=== PATIENT | female | born 1985 | race Caucasian/White ===

== ENCOUNTER 2017-11-06 07:22 | Day surgery (SDC) | payer BC, SELFPAY ==
[2017-11-05 07:33] LABS: Hematocrit 42.8 % (37-47); Hemoglobin 14.2 g/dl (12.0-15.0); Mean Corp Hgb Conc 33.2 g/gl (32-36); Mean Corpuscular Hgb 30.7 pg (27.0-32.0); Mean Corpuscular Volume 92.4 fL (81-99); Mean Platelet Vol. 10.2 fl (6.2-12.0); Platelet Count 225 K/mm3 (150-450); RBC Distribution Width CV 13.2 % (11.6-14.6); RBC Distribution Width SD 44.8 fl (35.1-43.9); Red Blood Count 4.63 M/mm3 (4.2-5.4)
[2017-11-05 07:34] LABS: Scan Indicated on CBC? Y/N NO
[2017-11-06] VITALS (7 sets, daily range): BP systolic 99–142; BP diastolic 84–89; PULSE 68–103; RESP 14–18; TEMP 37.1–37.4; O2SAT 96–98; BMI 32.1
[2017-11-06 07:42] LABS: Internal QC Validated? YES +Cl - CLEAR BKGD; Pregnancy, Urine Negative Negative
--- NOTE | 2017-11-06 09:00 | EMB_PTH ---
PATIENT: KATIA SHELBY [place] [facility] [id number] AGE/SX: 31/F ROOM: RE11/06/[address]: Dr. Winsome Amato, MDDOB: 1985 BED: DIS: 11/06/2017 SPEC #: [id number] RECD: 11/06/17 11:10 STATUS: ROBIN JEANINE #: [id number] SACHA: 11/06/17 09:[address]: Winsome Amato DEPT: SURGICAL PATHOLOGY RECD BY: Jacob Kenny ENTERED: 11/06/17 12:07 SP TYPE: ENDOM BX/C MAYCO DR: No Primary Care Phys Tissues: Endometrium, NOS Procedures: Surgery Specimen Level IV HEADER OPERATION: Hysteroscopy, D & C, Jaycob Jonas, removal endometrial polyps PRE-OP DIAGNOSIS: Menorrhagia, endometrial curettings TISSUE SUBMITTED: Polyps MICROSCOPIC DIAGNOSIS Endometrial curettings: Secretory endometrium. SJ:twan 11/07/17 MICROSCOPIC DESCRIPTION Slides are reviewed. GROSS DESCRIPTION Received in fixative is one container labeled with the patient's name and designated polyps. The specimen consists of multiple irregular fragments of pink-grijalva and brown soft tissue that in aggregate measure 3 x 2 x 0.3 cm. The specimen is totally submitted in one cassette. / RY:twan 11/06/17 TC:4 CPT: 49326
--- NOTE | 2017-11-06 09:28 | PCM.OP.BLANK ---
Operative Report Date of Procedure: 11/06/17 Surgeon: Dr. Winsome Colvin-Bryan Weighmaster Lead: Merari Huynh- JEANETTE student Pre op Diagnosis: Endometrial Polyps, AUB, desires contraception Post OP Diagnosis: Same Surgery Performed: Hysteroscopy, D&C with TruClear, removal endometrial polyps, Insertion of Mirena IUD Findings: Stenotic cervix, Uterus measures 8cm, Two polyps noted- Left fundal aspect and Left Lower uterine segment Complications: none EBL: 5cc Fluids: 1L LR Fluid deficit : 470 implantable devices: Mirena IUD Operative Note: After informed consent was obtained patient was taken to OR and placed in supine position. Anesthesia was given. patient was placed in yellow fin stirrups and prepped and draped in normal sterile fashion. bladder was drained with straight catheter with approximately 50cc of clear yellow urine expelled. Exam under anesthesia reviewed normal sized uterus with no adnexal masses. Weighted speculum placed in posterior fornix of vaginal, single tooth tenaculum was used to gently grasped anterior lip of cervix. cervix stenotic, dilator used to penetrate OS. Uterus was sounded to 8. Cervix was then gently dilated in an incremental fashion. Was adequate dilation was achieved the hysteroscope was inserted using Normal saline as the distention medium. Upon hysteroscopy there were two polyps noted in cavity. Both tubal ostia visualized. The TruClear Incisor blade used to morcellate polyps. The tissue was then sent to pathology for examination. Uterine cavity intact, no complications. MIRENA iud then placed without difficulty. Strings cut to 2cm from OS. At this time procedure was deemed complete and successful. Tenaculum removed, speculum removed. Good hemostasis appreciated. Vaginal sweep was negative. Instrument and lap count correct x 2. I anticipate normal postoperative course.
--- NOTE | 2017-11-06 09:34 | PCM.DC.D&C ---
Discharge Diet: No Restrictions Discharge Activity: Return to Normal Activity, May Shower, May Take a Tub Bath - in 2 weeks. May resume sexual activity in: 2 weeks - Mirena IUD is effective for control in 7 days Call your doctor if your incision/area has: Sudden Increased Bleeding, Foul Smelling Discharge Call your doctor if you observe: Fever of 101 or Higher, Uncontrolled pain Allergies/Adverse Reactions: Allergies nickel Allergy (Verified 06/02/17 19:06) Rash Medications to take at Discharge NK [NK] 11/03/17 Primary Care Physician: Care Physician,No Primary [Primary Care Provider] - Please Follow Up With: Winsome Amato MD When: as scheduled in 2 weeks
== END 2017-11-06 10:57 | disposition home or self-care (01) ==
LOC: SDC 07:23 → AC 07:23
PROVIDERS: Anesthesiology; Visit Provider Obstetrics & Gynecology
PROC: (CPT 58300; principal; 2017-11-06 08:45)
DX: N84.0 Polyp of corpus uteri (principal); N88.2 Stricture and stenosis of cervix uteri; F17.200 Nicotine dependence, unspecified, uncomplicated; F12.90 Cannabis use, unspecified, uncomplicated
CPT/HCPCS: 58300; 58558; 36415; 81025; 85027; 88305; J7120; J2405

== ENCOUNTER 2019-05-29 14:08 | Emergency (ER) | payer BC, SELFPAY ==
[2019-05-29 14:09] VITALS: BP 152/92; PULSE 61; RESP 12; TEMP 36.7; O2SAT 100; BMI 34.3
[2019-05-29] MEDS: Ketorolac 60 MG/2 ML Vial IM (14:39)
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
== END 2019-05-29 15:05 | disposition home or self-care (01) ==
PROVIDERS: Emergency Provider Emergency Medicine
DX: M54.5 Low back pain (principal); V49.50XA Passenger injured in collision with unspecified motor vehicles in traffic accident, initial encounter; Y93.9 Activity, unspecified; Y92.410 Unspecified street and highway as the place of occurrence of the external cause; F17.200 Nicotine dependence, unspecified, uncomplicated
CPT/HCPCS: 96372; 99282

== ENCOUNTER 2019-09-09 06:59 | Day surgery (SDC) | payer BC, SELFPAY ==
--- NOTE | 2019-09-01 12:31 | PCM.HP.BLA ---
History and Physical Date of Admission: 09/01/19 HPI: The patient is a 33 year old female presenting for pre-operative visit. She is scheduled for?laparoscopic removal of pedunculated uterine fibroid and I lateral salpingectomy, for?pelvic pain, pedunculated uterine fibroid, and sterilization request on?09/09/19. ??Procedure discussed along with risks, benefits and complications. ?Other alternatives discussed for management. Consent form signed??Yes.? PAST MEDICAL HISTORY PAST MEDICAL HISTORY Diagnosis Date ? Dyspareunia ? ? Tobacco abuse ? ? Varicose veins of both lower extremities ? ? left>right ? ? PAST SURGICAL HISTORY PAST SURGICAL HISTORY Procedure Laterality Date ? PAST SURGICAL HISTORY OF ? ? ? wisdom teeth and ingrown toenail ? ? CURRENT MEDICATIONS Current Outpatient Medications Medication Sig Dispense Refill ? levonorgestrel (MIRENA) 20 mcg/24 hr (5 years) IUD 1 Each by INTRAUTERINE route one time only. ? ? ? No current facility-administered medications for this visit.? ? ALLERGIES:?[place]; Nickel ? PERSONAL HISTORY:? SOCIAL HISTORY Social History ? Tobacco Use ? Smoking status: Current Every Day Smoker ? ? Packs/day: 1.00 ? ? Types: Cigarettes ? Smokeless tobacco: Never Used Substance Use Topics ? Alcohol use: Yes ? ? Comment: rare, once every 2 mos. ?Average 10 per month ? Drug use: No ? FAMILY HISTORY:? FAMILY HISTORY FAMILY HISTORY Problem Relation Age of Onset ? Hypertension Mother ? ? other (Endometrosis) Mother ? ? Thyroid Father ? ? Diabetes Brother ? ? Breast Cancer Maternal Grandmother ? ? Stroke Maternal Grandfather ?Brain anneurysm ? Cancer Paternal Grandmother ? ? Heart Paternal Grandfather ? ? REVIEW OF SYMPTOMS: GENERAL: denies fevers or chills ENDOCRINOLOGY: has not been on steroids Cardiology : denies palpitations or chest pain Respiratory: denies SOB or cough Hematology: denies history of prolonged bleeding or easy bruising or VTE Allergy: Denies history of personal or family history of allergy to anesthesia ? ? PHYSICAL EXAMINATION: ? VITALS:?There were no vitals taken for this visit. ? GENERAL:??The patient is well nourished, well hydrated in no acute distress. ?, The patient is oriented to time, place, and person. NECK:?Supple. No lynphadenopathy, normal thyroid, no thyromegaly. LUNGS:?Clear to auscultation bilaterally. no wheezes, rhonchi or rales HEART:?Regular rate and rhythm, Normal heart sounds and No murmurs or gallops ? MRI pelvis 07/30/19: 1. ?4.9 cm pedunculated/exophytic fibroid arising from the uterine body on the right, correlates with finding on prior CT scan. 2. ?Other small uterine fibroids. 3. ?2.9 cm cyst in the left ovary with peripheral enhancement, likely collapsing corpus luteal cyst. ?Follow-up ultrasound in 6-8 weeks could be obtained to document resolution. 4. Borderline left inguinal lymph node, unchanged. ? IMPRESSION:?pedunculated uterine fibroid, pelvic pain, sterilization request ? PLAN:???The risks/benefits/alternatives and personal involved for the planned?laparoscopic removal of uterine fibroid and bilateral salpingectomy?were reviewed with the patient. Her questions were answered to her satisfaction and she desires to proceed. ?Consent was signed. ?I reviewed with her postop instructions and expectations. ? ? I have reviewed and updated past medical and surgical history, medications and allergies? this history and physical was completed in my office on 08/27/2019 Teresa Ji M.D.
[2019-09-09] VITALS (11 sets, daily range): BP systolic 103–137; BP diastolic 74–113; PULSE 64–87; RESP 14–16; TEMP 36.6–36.9; O2SAT 90–99; BMI 35.0
--- NOTE | 2019-09-09 07:07 | EKG12_ITS ---
Test Reason : PRE OP Blood Pressure : / mmHG Vent. Rate : 089 BPM Atrial Rate : 089 BPM P-R Int : 160 ms QRS Dur : 074 ms QT Int : 370 ms P-R-T Axes : 039 024 034 degrees QTc Int : 450 ms Normal sinus rhythm Normal ECG No previous ECGs available Confirmed by TUCKER VALLADARES, FAUSTINO ([id number]), book editor ARIES LENNON ([id number]) on 09/13/2019 1:03:11 PM Referred By: Teresa Ji Confirmed By:FLETCHER CEBALLOS MD
[2019-09-09 07:28] LABS: Hematocrit 45.7 % (37-47); Hemoglobin 15.4 g/dL (12.0-15.0); Mean Corp Hgb Conc 33.7 g/dL (32-36); Mean Corpuscular Hgb 31.7 pg (27.0-32.0); Mean Platelet Vol. 9.3 fl (6.2-12.0); Platelet Count 276 K/mm3 (150-450); RBC Distribution Width CV 11.6 % (11.6-14.6); RBC Distribution Width SD 39.8 fl (35.1-43.9); Red Blood Count 4.86 M/mm3 (4.2-5.4); White Blood Count 7.5 K/mm3 (4.4-11.0)
[2019-09-09 07:35] LABS: Internal QC Validated? YES +Cl - CLEAR BKGD; Pregnancy, Urine Negative Negative
[2019-09-09] MEDS: Acetaminophen 500 MG Tablet 1000 MG PO (07:41)
[2019-09-09] MEDS: Gabapentin 600 MG Tablet PO (07:41)
[2019-09-09] MEDS: Celecoxib 200 MG Capsule 400 MG PO (07:41)
--- NOTE | 2019-09-09 08:35 | FALS_PTH ---
PATIENT: KATIA SHELBY [place] [facility] [place][id number] AGE/SX: 33/F ROOM: RE09/09/[address]: Dr. Teresa Ji MD : 1985 BED: DIS: 09/09/2019 SPEC #: [id number] RECD: 09/09/19 12:00 STATUS: ROBIN JEANINE #: [id number] SACHA: 09/09/19 08:[address]: Teresa Ji DEPT: SURGICAL PATHOLOGY RECD BY: Get Kumar ENTERED: 09/09/19 12:47 SP TYPE: FALL TUBES OTHR DR: No Primary Care Phys Tissues: A - Fallopian tube B - Fibrous tissue Procedures: Surgery Specimen Level II Surgery Specimen Level IV HEADER OPERATION: Laparoscopic salpingectomy, removal of pedunculated uterine fibroid PRE-OP DIAGNOSIS: Sterilization, pelvic pain, pedunculated uterine fibroid TISSUE SUBMITTED: A - Bilateral fallopian tubes, B - Pedunculated uterine fibroid MICROSCOPIC DIAGNOSIS A. Bilateral fallopian tubes, salpingectomy: Bilateral fallopian tubes including fimbrial ends, no pathologic diagnosis. B. Pedunculated uterine fibroid: Leiomyoma. TIO:twan 09/10/19 MICROSCOPIC DESCRIPTION Slides are reviewed. GROSS DESCRIPTION A - Received is one container labeled with the patient's name and designated bilateral fallopian tubes. The specimen consists of bilateral fallopian tubes including fimbrial ends measuring 3.5 cm in length and 0.5 cm in diameter and 6 cm in length and 0.5 cm in diameter. Sections do not reveal any mass lesion. The fallopian tubes are not identified as right or left. Sections reveal unremarkable cut surfaces. Supervisor Housecleaner sections are submitted in two cassettes with each cassette containing one fallopian tube. B - Received in fixative is one container labeled with the patient's name and designated pedunculated uterine fibroid. The specimen consists of a morcellated piece of grijalva, indurated tissue weighing in aggregate 34 gm and measuring in aggregate 7 x 5 x 3 cm. Sections of this mass reveals grijalva whorled cut surfaces without areas of hemorrhage, necrosis or cystic degeneration. Supervisor Housecleaner sections are submitted in four cassettes. / TIO:twan 09/09/19 TC:1 CPT: 14111, 62372 x2
--- NOTE | 2019-09-09 09:07 | PCM.DC.TUB ---
Discharge Diet: No Restrictions - Increase fluid intake for the next 48 hours. Discharge Activity: Return to Normal Activity, May Drive - when you are no longer taking pain/narcotic meds., May Shower, May Take a Tub Bath - in 7 days Additional Activity Instructions:: Ambulate often the next week after surgery. Nothing in the vagina for 5 days. Call your doctor if your incision/area has: Continuous Slow Oozing, Sudden Increased Bleeding, Increased Pain/ Swelling, Increased Redness, Foul Smelling Discharge Call your doctor if you observe: Fever of 101 or Higher Suture Line Care: Avoid Pulling/Pushing, Avoid Pinching/Bending Cleanse incision/area with: Soap & Water, - - Your incisions have skin glue, it can get wet. Leave the glue on for 10-14 days Allergies/Adverse Reactions: Allergies nickel Allergy (Verified 09/09/19 07:30) Rash Medications to take at Discharge Naproxen [Naprosyn] 500 mg PO BID PRN #20 tab 05/29/19 Levonorgesterol [Mirena] 1 ea IY DAILY 09/02/19 Ibuprofen [Motrin] 800 mg PO TID PRN PRN #60 tab 09/09/19 Oxycodone HCl/Acetaminophen [Percocet 5/325] 1 tablet PO Q6H PRN PRN 4 Days #12 tablet 09/09/19 The following prescriptions were given: Ibuprofen [Motrin] 800 mg PO TID PRN PRN #60 tab PRN Reason: Pain Transmission Status: Pending to [id number] Oxycodone HCl/Acetaminophen [Percocet 5/325] 1 tablet PO Q6H PRN PRN 4 Days #12 tablet PRN Reason: Pain Transmission Status: Received by [id number] Orders to be completed after discharge: Type & Screen Time Frame: 09/09/19, Facility: [facility], Location: Laboratory Primary Care Physician: Care Physician,No Primary [Primary Care Provider] - Test Results: Test results from this visit will be discussed in further detail at your follow-up appointment, if applicable. Please Follow Up With: Teresa Ji MD - [phone] When: 2 weeks or as needed
[2019-09-09] MEDS: Bupivacaine Mpf 0.5% 30 ML VIAL (09:13)
--- NOTE | 2019-09-09 10:50 | OP.PCM_ITS ---
Report of Operation Date of Procedure: 09/09/19 Pre-Operative Diagnosis: pelvic pain, uterine fibroid, sterilization request Post-Operative Diagnosis: same Surgery/Procedure Performed:: Laparoscopic removal of uterine fibroid and bilateral salpingectomy with morcellation of uterine fibroid in Pneumoliner fire investigation lieutenant: Dany Magaña Type of Anesthesia:: General Anesthesiologist: Justyn Herrera Special Medications: none Specimen's removed: uterine fibroid and bilateral fallopian tubes Drains: none Estimated Blood Loss (mL): 50 Fluids Replaced: 2000 cc LR Description of Procedure: The patient was taken to the operating room where she was prepped and draped in the dorsolithotomy position. A weighted speculum was placed in the vagina and the anterior lip of the cervix was grasped with a tenaculum. The DigiPath uterine manipulator was placed and the remainder of the instruments were removed from the vagina. Attention was turned to the abdomen. All port sites were infiltrated with 0.5% Marcaine before skin incisions were made. A 5 mm intraumbilical incision was made. The anterior abdominal wall was tented up with 2 towel clamps while a 5 mm blade less trocar and sleeve were directly inserted. Intraperitoneal placement was confirmed with the laparoscope. The pneumoperitoneum was created and the underlying abdominal contents were intact. The patient was placed in Trendelenburg. Right and left lower quadrant ports were placed under direct visualization lateral to the inferior epigastric vessels. The bowel was swept away and the above findings were noted. The LigaSure device was used to clamp seal and transect the antimesenteric portions of the right tube to the cornual insertion of the uterus. The tube was amputated from the uterus and the pedicles were all confirmed to be hemostatic. The same procedure was performed on the contralateral side. The specimens were brought out through a 5 mm port. The pedicles were again examined and found to be hemostatic. The right-sided pedunculated fundal fibroid was grasped with a grasper and using monopolar and the LigaSure device it was amputated from its pedicle. There is some bleeding from the bed of the uterus. This was made hemostatic with pressure, the LigaSure device, and monopolar patient. Some Mateo was then placed over this area. A subumbilical 2 and half centimeters skin incision was made and carried through to underlying layer of fascia, it was grasped with Jac clamps and tented up and a fascial incision was made. The peritoneum was entered bluntly. The pneumo liner port was placed. The specimen was grasped and held onto. The pneumo liner was then seated and placed into the peritoneal cavity and the specimen was placed inside of it. The top of the bag was brought back through the port and the specimen was then in the bag. The lateral port sites were removed. The pneumo liner was inflated. The morcellator was then used to morcellate the uterine fibroid down to a size that was small enough to bring her brought out through the umbilical incision. The bag was then removed through the umbilical incision. The pneumoperitoneum was re-created and again the uterine site was found to be hemostatic. The tubal pedicles were also hemostatic. The pneumoperitoneum was released. The fascia of the subumbilical incision was closed with 0 Vicryl suture in a running standard fashion. The lateral limb umbilical incisions were closed with Monocryl suture in a subcuticular fashion by the MULTIFOCAL BUTTON GRINDER with me present in the operating suite. The vaginal instruments were removed by me and determined to be intact. Skin incisions were then covered with skin glue. The vaginal instruments were removed and the vaginal sweep was completed by me. The procedure was performed by me with assistance other than as dictated above. All sponge and needle counts were correct and the patient was taken to the recovery room in stable condition. Grafts/Implants Used: none - Complications none - Admit VTE Documentation VTE Present on Admission: No VTE Mechan Device Prophylaxis: SCD's VTE Pharm Prophylaxis ordered?: No Reason prophylaxis not ordered:: Procedure Not Indicated
[2019-09-09] MEDS: Lactated Ringers 1,000 ML 75 ML IV (11:25)
== END 2019-09-09 14:09 | disposition home or self-care (01) ==
LOC: SDC 07:00 → AC 07:01
PROVIDERS: Referring Provider Obstetrics & Gynecology; Visit Provider Obstetrics & Gynecology
PROC: (CPT 58661; principal; 2019-09-09 08:20)
DX: D25.9 Leiomyoma of uterus, unspecified (principal); Z30.2 Encounter for sterilization; N83.202 Unspecified ovarian cyst, left side; N94.10 Unspecified dyspareunia; F17.210 Nicotine dependence, cigarettes, uncomplicated; Z86.718 Personal history of other venous thrombosis and embolism; Z86.2 Personal history of diseases of the blood and blood-forming organs and certain disorders involving the immune mechanism
CPT/HCPCS: 00840; 58545; 58661; 81025; 85027; 86850; 86900; 86901; 88302; 88304; 88305; 93005; J7120; J2405

== ENCOUNTER → 2020-05-01 17:53 | Outpatient (CLI) | payer BC, SELFPAY ==
[2019-09-09 07:30] VITALS: BMI 35.0
== END ==
PROVIDERS: Referring Provider Obstetrics & Gynecology; Visit Provider Obstetrics & Gynecology
DX: Z11.59 Encounter for screening for other viral diseases (principal); R50.9 Fever, unspecified; R05 Cough; R09.89 Other specified symptoms and signs involving the circulatory and respiratory systems
CPT/HCPCS: 87635; 94799; U0003

== ENCOUNTER 2023-06-19 05:27 | Day surgery (SDC) | payer BC, SELFPAY ==
--- NOTE | 2023-06-06 17:41 | PCM.HP.BLA ---
History and Physical Date of Admission: 06/19/23 HPI: The patient is a 37 year old female presenting for pre-operative visit. She is scheduled for total laparoscopic hysterectomy by me, has had previous salpingectomy. Scheduled for mid urethral sling with Dr. Urena, for AUB, adenomyosis, submucosal uterine fibroid and failed endometrial ablation on 06/19/23. Procedure discussed along with risks, benefits and complications. Other alternatives discussed for management. Consent form signed? Yes. ? ? PAST MEDICAL HISTORY PAST MEDICAL HISTORY Diagnosis Date ? Dyspareunia ? ? Tobacco abuse ? ? Varicose veins of both lower extremities ? ? left>right ? ? PAST SURGICAL HISTORY PAST SURGICAL HISTORY Procedure Laterality Date ? INSERTION OF IUD ? ? ? LAPAROSCOPY W/RMVL ADNEXAL STRUCTURES ? 09/09/2019 ? bilateral salpingectomy for sterilization ? LAPS MYOMECTOMY EXC 1-4 MYOMAS 250 GM/< ? 09/09/2019 ? laparascopic removal of right pendunculated fibroid ? PAST SURGICAL HISTORY OF ? ? ? wisdom teeth and ingrown toenail ? ? ? CURRENT MEDICATIONS Current Outpatient Medications Medication Sig Dispense Refill ? pantoprazole DR (PROTONIX) 40 mg tablet Take 1 tablet by mouth once daily. 30 minutes before eating. 90 tablet 3 ? levonorgestrel (MIRENA) 20 mcg/24 hours (5 yrs) 52 mg IUD 1 Each by INTRAUTERINE route one time only for 1 dose. 1 Each 0 ? norethindrone (AYGESTIN) 5 mg tablet Take 1 tablet by mouth once daily. ONE PO TID X 3 DAYS THEN BID X 3 DAYS THEN ONE QDAY. (Patient not taking: Reported on 11/12/2022) 30 tablet 1 ? No current facility-administered medications for this visit. ? ? ALLERGIES: Mosquitos and Nickel ? PERSONAL HISTORY: SOCIAL HISTORY Social History ? Tobacco Use ? Smoking status: Every Day ? ? Packs/day: 1 ? ? Types: Cigarettes ? Smokeless tobacco: Never Vaping Use ? Vaping Use: Never used Substance Use Topics ? Alcohol use: Yes ? ? Comment: social ? Drug use: Yes ? ? Types: Marijuana ? ? Comment: rare ? FAMILY HISTORY: FAMILY HISTORY FAMILY HISTORY Problem Relation Age of Onset ? Hypertension Mother ? ? other (Endometrosis) Mother ? ? Cervical Cancer Mother ? ? Thyroid Father ? ? Gall Stones Father ? ? Diabetes Brother ? ? Breast Cancer Maternal Grandmother ? ? Stroke Maternal Grandfather ? ? Brain anneurysm ? Cancer Paternal Grandmother ? ? Heart Paternal Grandfather ? ? ? REVIEW OF SYMPTOMS: GENERAL: denies fevers or chills ENDOCRINOLOGY: has not been on steroids Cardiology : denies palpitations or chest pain Respiratory: denies SOB or cough Hematology: denies history of prolonged bleeding or easy bruising or VTE Allergy: Denies history of personal or family history of allergy to anesthesia ? PHYSICAL EXAMINATION: ? VITALS: Blood pressure 128/86, pulse 102, resp. rate 16, height 5' 10 (1.778 m), weight 249 lb (112.9 kg), last menstrual period 05/08/2020, SpO2 96 %. ? GENERAL: The patient is well nourished, well hydrated in no acute distress. , The patient is oriented to time, place, and person. NECK: Supple. No lynphadenopathy, normal thyroid, no thyromegaly. LUNGS: Clear to auscultation bilaterally. no wheezes, rhonchi or rales HEART: Regular rate and rhythm, Normal heart sounds, and No murmurs or gallops ? Pelvic US done 10/04/22 RESULT: Uterus size: 8 x 4.1 x 4.4 cm ?? ? -Orientation: Anteverted ?? ? -Myometrium: Normal sonographic appearance. ?? ? -Endometrial echo complex: 0.8 cm . ?IUD within the endometrium. ? Submucosal fibroid of 1 cm. ?Posterior left uterine body fibroid of 1.6 cm ?? ? -Cervix: Incidental nabothian cysts Right ovary: 3 x 1.8 x 2.1 cm ?Normal sonographic appearance. Left ovary: 2.4 x 1.7 x 2.4 cm ?Normal sonographic appearance. ? ? PAP and HRHPV neg 09/2022 ? IMPRESSION: Submucosal and intramural uterine fibroids, failed endometrial ablation, menorrhagia, adenomyosis ? PLAN: The risks/benefits/alternatives and personal involved for the planned total laparoscopic hysterectomy were reviewed with the patient. Her questions were answered to her satisfaction and she desires to proceed. Consent was signed. I reviewed with her postop instructions and expectations. Dr. Urena will perform her portion of surgery, see her H&P ? History of superficial thrombophlebitis. We will give VTE prophylaxis, JONH hose and pneumatic compression devices. ? I have reviewed and updated past medical and surgical history, medications and allergies Assessment & Plan Assessment/Plan (1) Submucous uterine fibroid: (2) Menorrhagia with regular cycle: (3) Adenomyosis: (4) S/P endometrial ablation:
--- NOTE | 2023-06-12 09:07 | EKG12_ITS ---
Test Reason : PRE OP Blood Pressure : / mmHG Vent. Rate : 084 BPM Atrial Rate : 084 BPM P-R Int : 160 ms QRS Dur : 074 ms QT Int : 378 ms P-R-T Axes : 048 037 052 degrees QTc Int : 446 ms Normal sinus rhythm with sinus arrhythmia Normal ECG Confirmed by JAK VALLADARES, ESTEFANIA ([id number]), film editor supervisor DONALD BANKS ([id number]) on 06/16/2023 1:54:57 PM Referred By: Jeny Urena Confirmed By:ESTEFANIA BENEDICT MD
[2023-06-12 09:48] LABS: Hematocrit 47.7 % (37-47); Hemoglobin 15.9 g/dL (12.0-15.0); Mean Corp Hgb Conc 33.3 g/dL (32-36); Mean Corpuscular Hgb 32.2 pg (27.0-32.0); Mean Corpuscular Volume 96.6 fL (81-99); Platelet Count 227 K/mm3 (150-450); RBC Distribution Width CV 12.2 % (11.6-14.6); RBC Distribution Width SD 43.8 fl (35.1-43.9); Red Blood Count 4.94 M/mm3 (4.2-5.4); White Blood Count 5.3 K/mm3 (4.4-11.0)
[2023-06-12 09:56] LABS: International Normalized Ratio 0.9; Prothrombin Time (Protime)PT. 12.3 SECONDS (11.7-14.9)
[2023-06-12 09:57] LABS: Partial Thromboplast Time 26.6 Seconds (24.1-36.2)
[2023-06-12 10:32] LABS: AST(SGOT) 22 U/L (15-37); Alanine Aminotransfer ALT/SGPT 46 U/L (13-56); Albumin, Serum 3.5 g/dL (3.2-5.0); Alkaline Phosphatase 59 U/L (45-117); Bilirubin, Direct 0.13 mg/dL (0.00-0.30); Globulin 3.6 g/dL (2.2-4.2); Magnesium 2.5 mg/dL (1.6-2.6); Protein, Total 7.1 g/dL (6.4-8.2)
[2023-06-19] VITALS (12 sets, daily range): BP systolic 120–180; BP diastolic 75–100; PULSE 74–118; RESP 14–24; TEMP 36.9–37.6; O2SAT 93–100; BMI 35.6
--- NOTE | 2023-06-19 | HYST_PTH ---
PATIENT: KATIA SHELBY [place] [facility] [place][id number] AGE/SX: 37/F ROOM: RE06/19/[address]: Dr. Jeny Urena MD : [id number] BED: DIS: 06/19/2023 SPEC #: [id number] RECD: 06/19/23 11:19 STATUS: ROBIN JEANINE #: [id number] SACHA: 06/19/23 00:[address]: Teresa Ji DEPT: SURGICAL PATHOLOGY RECD BY: Moni Patel ENTERED: 06/19/23 11:34 SP TYPE: HYSTERECT OTHR DR: Dr. Jeny Urena MD No Primary Care Phys Tissues: Uterus, NOS Procedures: Surgery Specimen Level V HEADER OPERATION: ERAS, hysterectomy PRE-OP DIAGNOSIS: Submucous uterine fibroid, menorrhagia, adenomyosis, status post ablation TISSUE SUBMITTED: Cervix and uterus MICROSCOPIC DIAGNOSIS Cervix and uterus, hysterectomy: Cervix - mild chronic cystic cervicitis. Endometrium - consistent with exogenous hormone effects and focal area of proliferative endometrium. Myometrium - intramural and subserosal leiomyomas (largest measuring 2.2 cm in greatest dimension). Intrauterine device (gross only). SJ:twan 06/20/2023 MICROSCOPIC DESCRIPTION Slides are reviewed. GROSS DESCRIPTION Received in fixative is one container labeled with the patient's name and designated uterus. The specimen consists of a uterus with attached cervix without fallopian tubes or ovaries measuring 9.0 x 7.5 x 4.5 cm and weighing 109 gm. The ectocervix is grossly unremarkable. The endocervical canal measures 3.5 cm in length and is grossly unremarkable. The triangular endometrial cavity measures 4.0 x 4.0 cm. The velvety, light grijalva endometrium measures up to 0.2 cm in thickness. The endometrial cavity contains a synthetic/plastic T-shaped IUD measuring 3.5 x 3.0 x 0.3 cm. The IUD is grossly intact without migration or perforation. The myometrium measures 2.2 cm in average thickness and contains three rubbery, grijalva-white nodules resembling leiomyomas ranging in size from 0.6 to 2.2 cm. These nodules are intramural and submucosal in location. Auto Body Repairman sections are submitted in eight cassettes as follows: 1 - anterior cervix, 2 - posterior cervix, 3 & 4 - anterior myometrial wall, 5 & 6 - posterior myometrial wall, 7 - largest myometrial mass, 8 - two smaller myometrial masses. / AM:twan 06/19/2023 TC:1 CPT: 20697
[2023-06-19 06:17] LABS: Bedside Glucose 84 mg/dL (74-106)
[2023-06-19] MEDS: Acetaminophen 500 MG Tablet 1000 MG PO ×2 (06:27→14:22)
[2023-06-19] MEDS: Scopolamine 1mg/72hr Patch 1 PATCH TD (06:28)
[2023-06-19] MEDS: Enoxaparin 40 MG/0.4 ML Syringe SC (06:28)
[2023-06-19] MEDS: Gabapentin 600 MG Tablet PO (06:28)
[2023-06-19] MEDS: Celecoxib 200 MG Capsule 400 MG PO (06:28)
[2023-06-19] MEDS: Lactated Ringers 1,000 ML 40 ML IV (06:42)
[2023-06-19] MEDS: Magnesium 1 GM over 15 mins IV (06:43)
[2023-06-19 07:22] LABS: Internal QC Validated? YES +Cl - CLEAR BKGD; Pregnancy, Urine Negative Negative
[2023-06-19] MEDS: Cefazolin 2 GM in 0.9% Normal Saline (100mL Bag) 100 ML IV (07:40)
[2023-06-19] MEDS: Lubricating Jelly 60 GM Tube 30 GM (08:00)
[2023-06-19] MEDS: dexAMETHasone 4 MG/ML Vial 8 MG IV (08:00)
--- NOTE | 2023-06-19 08:27 | PCM.OPRPT ---
Problems Associated Problem List Diagnoses (1) CATINA (stress urinary incontinence, female): Report of Operation Date of Procedure: 06/19/23 Pre-Operative Diagnosis: Stress incontinence, urethral hypermobility Post-Operative Diagnosis: Same Surgery/Procedure Performed:: Mid urethral sling insertion, cystoscopy Surgeon: Jeny Urena Type of Anesthesia: General Description of Procedure: The patient is a 37-year-old female with stress urinary incontinence who presents for surgical intervention along with hysterectomy. Informed consent was obtained. The patient was taken to the operating room and placed on the operating room table. Anesthesia monitored the head, neck, airway, IV access and vital signs throughout the case. Once anesthesia was appropriately administered, she was placed into dorsolithotomy position and was prepped and draped in usual sterile fashion. Dr. Ji proceeded with her portion of the procedure. After closure of the cuff, the case was turned over to ms. The Harry catheter had been inserted sterilely. The mid urethra was isolated and the submucosa was injected for hydrostatic dissection and hemostatic control. A midline vertical 2 cm incision was made in bilateral dissection was performed with care being taken to avoid entry into the vaginal mucosa or the urethra. At this time, using the trocars, the Altis mid urethral sling was inserted through the obturator complex bilaterally. The sling was positioned flat against the urethra without excessive tension and the tensioning suture was then cut. The incision was closed using running interlocking 2-0 Vicryl. The Harry catheter was removed and the cystoscope was inserted through the urethra under direct visualization into the urinary bladder. This revealed no evidence of injury to the urinary bladder or urethra. At this time the bladder was emptied and the cystoscope was removed. The patient was awakened and taken to the recovery room in good condition. There were no complications during this procedure. Grafts/Implants Used: Altis mid urethral sling Complications None Admit VTE Documentation VTE Present on Admission: Yes VTE Mechan Device Prophylaxis: SCD's VTE Pharm Prophylaxis ordered?: No Reason prophylaxis not ordered:: Treatment Not Indicated
--- NOTE | 2023-06-19 08:30 | DCINST_ITS ---
Discharge Instructions Diet Discharge Diet: No restrictions Activity Discharge Activity: May Shower May resume sexual activity in: - (Per Dr. Ji's instructions.) Lifting Restrictions: 5 pounds for the next 4 weeks Additional Activity Instructions:: No exercise, heavy lifting, strenuous activity, sexual activity, tub bathing, swimming or hot tubs Dressing / Incision Call your doctor if your incision/area has: Continuous Slow Oozing, Sudden Increased Bleeding, Increased Pain/ Swelling and Foul Smelling Discharge Call your doctor if you observe: Fever of 101 or Higher, Inability to urinate and Inability to have a bowel movement Follow Up Care Please Follow Up With: Teresa Ji MD When: , the office will call to make arrangements for follow up Test Results: Test results from this visit will be discussed in further detail at your follow- up appointment, if applicable. Discharge Plan Admission Primary Reason for Your Visit: Hysterectomy Attending Provider: Jeny Urena Primary Care Provider: Care Physician,No Primary Consulting Providers: Teresa Ji Discharge Orders/Prescriptions Prescriptions: New oxycodone-acetaminophen [Percocet] 5-325 mg tablet 1 tab PO Q8H PRN (Reason: pain) 7 Days Qty: 20 0RF cephalexin [cephalexin] 500 mg capsule 500 mg PO Q12 3 Days Qty: 6 0RF Continued naproxen 500 MG tablet 500 mg PO BID PRN Qty: 20 0RF levonorgestrel 1 EACH intrauterine device 1 ea IY DAILY ibuprofen 800 MG tablet 800 mg PO TID PRN PRN (Reason: Pain) Qty: 60 1RF pantoprazole 40 mg tablet,delayed release (DR/EC) 40 mg PO 1130 Patient Comments: TAKE 1 TABLET BY MOUTH ONCE DAILY. 30 MINUTES BEFORE EATING. Other Ambulatory Orders: ,Urine (Routine) Timeframe: [id number] Facility: [facility] - Location: Laboratory Ordered By: Dr. Teresa Ji Referrals / Follow Up: Care Physician,No Primary [Primary Care Provider] - Disposition Disposition (needs filled in before D/C Order can be placed): Home, Self Care
[2023-06-19] MEDS: Lidocaine 1% /Epi 1:100 (50ml) 50 ML VIAL (09:00)
--- NOTE | 2023-06-19 09:35 | OP.PCM_ITS ---
Problems Associated Problem List Diagnoses (1) Adenomyosis: (2) S/P endometrial ablation: (3) Submucous uterine fibroid: Report of Operation Date of Procedure: 06/19/23 Pre-Operative Diagnosis: post endometrial ablation syndrome, adenomyosis, submucosal uterine fibroid Post-Operative Diagnosis: same Surgery/Procedure Performed:: [facility] Description of Surgical Findings:: boggy uterus, normal ovaries w/ polycystic appearance. Otherwise unremarkable pelvis Surgeon: Teresa Ji pharmacovigilance scientist: Winsome Amato Type of Anesthesia: General Anesthesiologist: Carmen Quick Special Medications: none Specimen's removed: uterus and cervix Drains: none Estimated Blood Loss (mL): 100 Fluids Replaced: 1000 Description of Procedure: The patient was taken to the operating room where she was prepped and draped in the dorsal lithotomy position. Her arms were tucked to the side and padded and her legs were placed in the yellowfin stirrups. Care was taken to ensure that she was placed in a neurologically safe and neutral position. A weighted speculum was placed in the vagina and the anterior lip of the cervix was grasped with a single-tooth tenaculum. The cervix sounded to centimeters. 2-0 Vicryl sutures were secured to the cervix at 3 and 9:00. The 3 cm uterine network systems engineer was placed into the cervix and the balloon inflated. The stay sutures were placed through the cup and secured down to the cervix. Once the V-Care was secured to the cervix the Harry catheter was placed to straight drain. Attention was turned to the abdominal portion of the case. Before skin incisions were made they were infiltrated with 0.5% Marcaine solution for local anesthetic. A 5 mm infraumbilical incision was made and while tenting the anterior abdominal wall up with towel clamps a 5 mm blade less trocar and sleeve were advanced directly into the peritoneal cavity. Peritoneal placement was confirmed with the laparoscope the pneumoperitoneum was created, and the underlying abdominal contents were intact. The patient was placed in Trendelenburg and the above findings were noted. Right 5 mm trochar and left 7 mm trocar were placed under direct visualization without difficulty. The tubes were surgically absent. The round ligaments were clamped sealed and transected and a window was made in the peritoneum. The utero-ovarian ligaments were then clamped sealed and transected with the LigaSure device and the pedicles were hemostatic The bladder flap was dissected down with the LigaSure device and blunt di ssection and the uterine arteries were then skeletonized. The uterine arteries were clamped sealed and transected on both sides with the LigaSure device. Then along the cardinal ligament uterine arteries adjacent to the cervix were clamped sealed and transected with the LigaSure device to move them away from the vaginal cuff angle. At this point the pedicles were all examined and found to be hemostatic. The bladder flap was rechecked and found to be adequately down. The monopolar tip of the LigaSure device was then used to enter the anterior vagina. The vaginal manipulator cup was noted in the vaginal colpotomy incision was made circumferentially around the cup. When the 3 and 9:00 positions of the cervicovaginal junction were reached these were clamped sealed and transected with the LigaSure device to secure any small remaining vessels. At this point the pedicles were hemostatic from above and attention was turned to the vaginal portion of the case again. The uterus was brought intact out through the vaginal colpotomy incision along with the tubes There is some bleeding from the right vaginal cuff angle and this was grasped with an Allis clamp. Vaginal angle sutures were placed on both sides with 0 Vicryl sutures and care was taken to ensure that the uterosacral ligament was secured into this stitch. The remainder the vagina was then closed horizontally with interrupted 0 Vicryl sutures. The cuff was hemostatic vaginally. A sponge stick was placed in the vagina to help place traction against the vaginal cuff and the pneumoperitoneum was re-created. The suction alternative financing specialist was used to remove any blood and clots from the peritoneal cavity. The pedicles were reexamined and found to be hemostatic. The vaginal cuff was hemostatic. Some Mateo was placed over the cuff and the pedicles and no active bleeding was noted through the Mateo. The right and left lateral ports were taken out and the sites were hemostatic. The pneumoperitoneum was released and even under low pressure there was no bleeding of any of the pedicles are vaginal cuff. The umbilical port was removed. The umbilical skin incisions were closed with Monocryl suture and skin glue by Dr. Adams. The vaginal instruments were removed by nv and a vaginal sweep was completed by me. Dr. Urena then performed a cystoscopy and the bladder was intact and both ureteral orifices were seen and ureteral jets were noted. She then performed her procedure. The surgery was performed by me with assistance other than the portions dictated as above. There were no qualified residents available for this procedure. All sponge lap and needle counts were correct and the patient was transferred to the recovery room in stable condition. Dr. Adams provided uterine manipulation, camera guidance and tissue manipulation as well as instrument guidance during the procedure. Grafts/Implants Used: none Procedure Start Time: 08:02 Procedure Stop Time: 09:28 Complications none Admit VTE Documentation VTE Present on Admission: No VTE Mechan Device Prophylaxis: SCD's VTE Pharm Prophylaxis ordered?: Yes
[2023-06-19] MEDS: Bupivacaine Mpf 0.5% 30 ML VIAL (09:39)
--- NOTE | 2023-06-19 09:41 | DCINST_ITS ---
Discharge Instructions Diet Discharge Diet: No restrictions Activity Discharge Activity: May Drive (in 7-10 days if not on pain medication), May Shower and May Take a Tub Bath (after 6 weeks) May resume sexual activity in: 6-8 weeks and - (Per Dr. Ji's instructions.) Additional Activity Instructions:: No exercise, heavy lifting, strenuous activity, sexual activity, tub bathing, swimming or hot tubs Dressing / Incision Call your doctor if your incision/area has: Continuous Slow Oozing, Sudden Increased Bleeding, Increased Pain/ Swelling and Foul Smelling Discharge Call your doctor if you observe: Fever of 101 or Higher, Inability to urinate and Inability to have a bowel movement Cleanse incision/area with: Soap & Water (the incisions have skin glue and can get wet. leave it on for 10 days or until it falls off) and - (Your incisions have skin glue, it can get wet, leave the glue on until it falls off. ) Follow Up Care Please Follow Up With: Teresa Ji MD When: With my office in 1-2 and 6 weeks or as needed. [phone]. Send a my chart message with nonurgent questions Test Results: Test results from this visit will be discussed in further detail at your follow- up appointment, if applicable. Discharge Plan Admission Primary Reason for Your Visit: Hysterectomy Attending Provider: Jeny Urena Primary Care Provider: Care Physician,No Primary Consulting Providers: Teresa Ji Discharge Orders/Prescriptions Prescriptions: New oxycodone-acetaminophen [Percocet] 5-325 mg tablet 1 tab PO Q8H PRN (Reason: pain) 7 Days Qty: 20 0RF cephalexin [cephalexin] 500 mg capsule 500 mg PO Q12 3 Days Qty: 6 0RF Continued naproxen 500 MG tablet 500 mg PO BID PRN Qty: 20 0RF levonorgestrel 1 EACH intrauterine device 1 ea IY DAILY ibuprofen 800 MG tablet 800 mg PO TID PRN PRN (Reason: Pain) Qty: 60 1RF pantoprazole 40 mg tablet,delayed release (DR/EC) 40 mg PO 1130 Patient Comments: TAKE 1 TABLET BY MOUTH ONCE DAILY. 30 MINUTES BEFORE EATING. Other Ambulatory Orders: ,Urine (Routine) Timeframe: 20230619 Facility: [facility] - Location: Laboratory Ordered By: Dr. Teresa Ji Referrals / Follow Up: Care Physician,No Primary [Primary Care Provider] - Disposition Disposition (needs filled in before D/C Order can be placed): Home, Self Care
[2023-06-19] MEDS: Ondansetron 4 MG/2 ML Vial IV (10:36)
[2023-06-19] MEDS: Ketorolac 15 MG/ML Vial IV (10:36)
[2023-06-19] MEDS: Lactated Ringers @ 70 MLS/HR 70 ML IV (10:42)
[2023-06-19 13:24] LABS: Hematocrit 45.1 % (37-47); Hemoglobin 15.8 g/dL (12.0-15.0); Mean Corpuscular Hgb 33.1 pg (27.0-32.0); Mean Corpuscular Volume 94.5 fL (81-99); Mean Platelet Vol. 9.9 fl (6.2-12.0); Platelet Count 288 K/mm3 (150-450); RBC Distribution Width CV 12.1 % (11.6-14.6); RBC Distribution Width SD 41.9 fl (35.1-43.9); Red Blood Count 4.77 M/mm3 (4.2-5.4); White Blood Count 20.8 K/mm3 (4.4-11.0)
--- NOTE | 2023-06-19 13:27 | SUR.PHASEII ---
pt up to void, 100 ml in hat. scanned for [address] duncan, would like pt to have larger void. pt back to bed. drinking water.
== END 2023-06-19 15:29 | disposition home or self-care (01) ==
LOC: SDC 05:28 → AC 05:28
PROVIDERS: Anesthesiology; Obstetrics & Gynecology; Referring Provider Urology; Visit Provider Urology
PROC: 0UT94ZZ Resection of Uterus, Percutaneous Endoscopic Approach (ICD-10-PCS; principal; 2023-06-19 07:10)
PROC: 0TJB8ZZ Inspection of Bladder, Via Natural or Artificial Opening Endoscopic (ICD-10-PCS; CPT 57288; 2023-06-19 07:10)
DX: N80.03 Adenomyosis of the uterus (principal); N39.3 Stress incontinence (female) (male); F17.210 Nicotine dependence, cigarettes, uncomplicated; N92.0 Excessive and frequent menstruation with regular cycle; N36.41 Hypermobility of urethra; D25.1 Intramural leiomyoma of uterus; Z80.3 Family history of malignant neoplasm of breast; N93.9 Abnormal uterine and vaginal bleeding, unspecified; K21.9 Gastro-esophageal reflux disease without esophagitis; F12.90 Cannabis use, unspecified, uncomplicated; N99.85 Post endometrial ablation syndrome; D25.0 Submucous leiomyoma of uterus
CPT/HCPCS: 51992; 58570; 00860; 36415; 80076; 81025; 82962; 83735; 85027; 85610; 85730; 86850; 86900; 86901; 88307; 93005; J7120; J2405; J3475

== ENCOUNTER 2025-09-19 11:17 | Emergency (ER) | payer BC, SELFPAY ==
[2025-09-19 11:18] VITALS: BP 174/96; PULSE 93; RESP 18; TEMP 37.2; O2SAT 99; BMI 34.8
--- NOTE | 2025-09-19 11:29 | CT_ITS ---
PROCEDURE: ABDOMEN/PELVIS WITHOUT CONT 09/19/2025 REASON FOR EXAM: PAIN RIGHT FLANK TECHNIQUE: Procedure Code: CTABDPEL Modality: CT Procedure: ABDOMEN/PELVIS WITHOUT CONT Noncontrast technique limits evaluation of the abdominal and pelvic viscera. Coronal and Sagittal reconstruction series were provided. One or more dose reduction techniques were used (e.g., Automated exposure control, adjustment of the mA and/or kV according to patient size, use of iterative reconstruction technique). RADIATION DOSE SUMMARY: CTDlvol: 19.02 mGy DLP: 1116.78 mGycm COMPARISON: None. FINDINGS: Lung bases: Clear. Liver: Unremarkable. Gallbladder: Cholelithiasis. No biliary dilation. Spleen: Unremarkable. Pancreas: Unremarkable. Adrenals: Unremarkable Kidneys: No hydronephrosis. No nephrolithiasis. Bladder: Unremarkable. Reproductive Organs: Unremarkable. Bowel: No bowel wall thickening. No bowel obstruction. Appendix: Normal Lymph nodes: No lymphadenopathy. Vasculature: No evidence. Peritoneum / Retroperitoneum: No free air or free fluid. Bones: No acute bony elements. Limited study due to lack of IV contrast. CT/Abdomen/Pelvis without Cont IMPRESSION: Cholelithiasis. No hydronephrosis or nephrolithiasis. Reading Location: [facility]
--- NOTE | 2025-09-19 11:30 | ED.VIS.GI ---
HPI HPI - GI History of Present Illness Chief Complaint: Flank Pain Informant: patient and spouse/S.O. Narrative Narrative: Patient is a 39-year-old female presenting with acute onset back and right-sided abdominal pain. - Reports right low back pain upon waking yesterday, worsening significantly this morning around 0500. - Describes pain as severe, radiating from the back to the right side of the abdomen. - Associated with nausea this morning, but denies emesis. Denies dysuria or urinary issues. Reports normal bowel movements. - Has a history of gallstone, no pain radiating into the right shoulder and no worsening with eating yesterday; has not eaten anything yet today. - Has taken pantoprazole in the past for heartburn. - Has undergone three abdominal surgeries, including fibroid removal and hysterectomy. [facility] Medical History (Updated 09/19/25 @ 14:[address] Howie Salcedo MD) Kidney stones CATINA (stress urinary incontinence, female) Anxiety Marijuana use Alcohol use Bladder disease Easy bruising Back pain Syncope Difficulty swallowing Gastric reflux Shortness of breath on exertion Smoker Leg cramps Chronic cough History of pain when walking History of edema Home Medications ?Medication ?Instructions ?Recorded ?Last Taken ?Type naproxen 500 mg tablet 500 mg PO BID PRN #20 tabs 05/29/19 Unknown Rx levonorgestrel 1 ea IY DAILY 09/02/19 Unknown History ibuprofen 800 mg tablet 800 mg PO TID PRN PRN Pain #60 tabs 09/09/19 Unknown Rx pantoprazole 40 mg tablet,delayed 40 mg PO 1130 06/12/23 Unknown History release cephalexin 500 mg capsule 500 mg PO Q12 post-operative 3 06/19/23 Unknown Rx days #6 CAPSULES oxycodone-acetaminophen 5 mg-325 1 tab PO Q8H PRN pain 7 days #20 06/19/23 Unknown Rx mg tablet (Percocet) tabs Allergy/AdvReac Type Severity Reaction Status Date / Time nickel Allergy Rash Verified 09/19/25 11:18 Surgical History History of hysteroscopy Hx of tooth extraction Hx of wisdom tooth extraction Social History Smoking Status: Current every day smoker tobacco type: cigarettes ROS ROS ED Constitutional Constitutional ED: Denies chills or fever(s) Eyes Eyes: Denies change in vision or diplopia ENT ENT ED: Denies rhinorrhea or sore throat Cardiovascular Cardiovascular: Denies chest pain or palpitations Respiratory/Chest Respiratory/Chest: Denies cough or dyspnea Gastrointestinal Gastrointestinal: Reports abdominal pain and nausea; Denies diarrhea or vomiting Genitourinary Genitourinary ED: Denies dysuria or hematuria Musculoskeletal Musculoskeletal: Reports back pain; Denies neck pain Integumentary Denies abscess or rash Neurologic Neurologic: Denies headache(s), paresthesias or weakness Psychiatric Psychiatric: Denies suicidal thoughts EXAM Physical Exam Const Vital Signs: 09/19/25 11:18 09/19/25 13:17 Temperature 99 F Temperature Source Oral Pulse Rate 93 66 Respiratory Rate 18 16 Blood Pressure 174/96 H 172/99 H Blood Pressure Mean 122 123 Pulse Ox 99 99 Oxygen Delivery Method Room Air Positive well nourished and well developed General Appearance ED: well developed and NAD HEENT Reports moist mucous membranes normocephalic and atraumatic Eyes PERRL and EOMs intact bilaterally Neck full ROM and supple Resp normal respiratory effort and clear to auscultation bilaterally Cardio regular rate, regular rhythm and no murmurs GI non-distended GI Narrative: Mild tenderness right mid abdomen no guarding rebound. Negative Triana. Auscultation: normoactive bowel sounds Palpation: soft Back/Spine General Back: CVA tenderness right and other FROM Extremity normal to inspection General Extremety ED: Negative for edema, pulses abnormal or tenderness General Extremity: Negative for edema or pulses abnormal Neuro oriented x3, CN's II-XII intact bilaterally and no sensory deficits noted Sensorium / Orientation: awake and alert Motor Exam: strength 5/5 throughout Skin no rashes or lesions noted and no wounds MDM MDM MDM Narrative Medical decision making narrative: Patient?s symptoms on exam are consistent with a kidney stone. She is tender in the right mid-abdomen and has a known gallstone, so cholecystitis was also considered. However, because a kidney stone was more likely, we obtained a CT scan of the abdomen and pelvis, as well as labs and urinalysis. She was given Toradol, which relieved her pain, and on reexamination, she feels comfortable, is pain-free, and was seen walking in the emergency department halls without distress. Her labs are normal. She has a white blood cell count of 10.0 with no left shift. Liver enzymes and lipase are normal. The CT of the abdomen and pelvis shows no kidney stone or acute abnormality, with no signs of hydroureteronephrosis or nephrolithiasis. Cholelithiasis is noted, but there are no radiographic signs of acute cholecystitis and no biliary dilation. On further questioning, the patient states she ate [place] food yesterday, including cheese and meat, without any exacerbation of her pain. Given this, my suspicion for acute cholecystitis or biliary colic is lower. My suspicion is higher that she had a kidney stone which passed prior to imaging, especially given microscopic hematuria. Since she is now pain-free, she will be discharged with strict return instructions and follow-up instructions. Lab Data Attestation: I reviewed the patient's lab results. Labs: Laboratory Results - last 24 hr 09/19/25 09/19/25 11:44 13:00 WBC 10.0 RBC 4.94 Hgb 16.0 H Hct 46.6 MCV 94.3 MCH 32.4 H MCHC 34.3 RDW Std Deviation 42.9 RDW Coeff of Carlos Eduardo 12.4 Plt Count 260 MPV 9.5 Immature Gran % (Auto) 0.500 Neut % (Auto) 61.9 Lymph % (Auto) 24.3 [place] % (Auto) 9.2 Eos % (Auto) 3.0 Baso % (Auto) 1.1 H Absolute Neuts (auto) 6.2 Absolute Lymphs (auto) 2.43 Nucleated RBC % 0 Sodium 138 Potassium 3.9 Chloride 100 Carbon Dioxide 27.7 Anion Gap 10 BUN 14 Creatinine 0.63 L Estim Creat Clear Calc 158.04 Est GFR (MDRD) Non-Af 114 BUN/Creatinine Ratio 23.0 H Glucose 94 Calcium 9.4 Total Bilirubin 0.25 AST 18 ALT 25 Alkaline Phosphatase 73 Total Protein 7.3 Albumin 4.4 Globulin 2.9 Albumin/Globulin Ratio 1.5 Lipase 35 Urine Color Yellow Urine Clarity Clear Urine pH 6.5 Ur Specific [place] 1.020 Urine Protein 15 H Urine Glucose (UA) Normal Urine Ketones Negative Urine Occult Blood 25 H Urine Nitrite Negative Urine Bilirubin Negative Urine Urobilinogen Normal Ur Leukocyte Esterase Negative Urine RBC 0-5 SEEN Urine WBC 0-5 SEEN Ur Squamous Epith Cells 0-5 SEEN Urine Bacteria RARE Urine Mucus 1+ Radiography Diagnostic Testing: Clinical Impression(s) from Imaging Studies Abdomen/Pelvis CT 09/19/25 11:29 IMPRESSION: Cholelithiasis. No hydronephrosis or nephrolithiasis. Reading Location: [facility] Discharge Plan Triage Chief Complaint: Flank Pain ED Provider: Howie Salcedo Dx/Rx/DC Orders Clinical Impression: Acute right flank pain, Calculus of gallbladder without cholecystitis without obstruction, Microscopic hematuria Instructions: ED Flank Pain with Uncertain Cause Prescriptions: No Action naproxen 500 MG tablet 500 mg PO BID PRN Qty: 20 0RF levonorgestrel 1 EACH intrauterine device 1 ea IY DAILY ibuprofen 800 MG tablet 800 mg PO TID PRN PRN (Reason: Pain) Qty: 60 1RF pantoprazole 40 mg tablet,delayed release (DR/EC) 40 mg PO 1130 Patient Comments: TAKE 1 TABLET BY MOUTH ONCE DAILY. 30 MINUTES BEFORE EATING. oxycodone-acetaminophen [Percocet] 5-325 mg tablet 1 tab PO Q8H PRN (Reason: pain) 7 Days Qty: 20 0RF cephalexin [cephalexin] 500 mg capsule 500 mg PO Q12 3 Days Qty: 6 0RF Primary Care Provider: Care Physician,No Primary Referrals: Doctor,Your [Non-Staff, None] - 3-5 Days if not improving Referral Note: or may return to ER Print Language: Kiswahili Disposition Disposition: Home, Self Care
[2025-09-19 11:49] LABS: Hematocrit 46.6 % (37-47); Hemoglobin 16.0 g/dL (12.0-15.0); Immature Granulocytes Count 0.050 X10^3/uL (0.0-0.0); Mean Corp Hgb Conc 34.3 g/dL (32-36); Mean Corpuscular Volume 94.3 fL (81-99); Mean Platelet Vol. 9.5 fl (6.2-12.0); NRBC Flagged by Analyzer 0 % (0-5); Platelet Count 260 K/mm3 (150-450); RBC Distribution Width CV 12.4 % (11.6-14.6); RBC Distribution Width SD 42.9 fl (35.1-43.9); Red Blood Count 4.94 M/mm3 (4.2-5.4); White Blood Count 10.0 K/mm3 (4.4-11.0)
[2025-09-19] MEDS: Ketorolac 30 MG/ML Syringe IV (11:50)
--- NOTE | 2025-09-19 12:22 | CM.ED ---
Social work Reason for referral: no PCP Referral source: case find SW entered patient's room, introducing self and role at [facility]. Patient's significant other, Remington, was bedside and patient was observed sitting up in bed. Patient stated having a PCP through [facility], but patient was unable to remember the name. Patient stated only seeing this doctor a couple of times. Patient denied needing resources of any kind at this time. Wanda Benedict, PRESIDENT AND CMO, SERVICE WRITER
[2025-09-19 12:27] LABS: AST(SGOT) 18 U/L (<=31); Alanine Aminotransfer ALT/SGPT 25 U/L (<=34); Albumin, Serum 4.4 g/dL (3.5-5.0); Alkaline Phosphatase 73 U/L (35-104); Anion Gap 10 (7-18); BUN 14 mg/dL (4-19); BUN/Creat Ratio 23.0 RATIO (10-20); Calcium,Total 9.4 mg/dL (7.6-11.0); Carbon Dioxide 27.7 mmol/L (20.0-29.0); Chloride 100 mmol/L (96-106); Estimated Creatinine Clearance 158.04 ml/min (50-250); Globulin 2.9 g/dL (2.2-4.2); Glucose 94 mg/dL (70-99); Lipase 35 U/L (13-75); Potassium 3.9 mmol/L (3.5-5.1)
[2025-09-19 13:15] LABS: Color, Urine Yellow (Yellow); Glucose, Dipstick Normal (Normal); Ketone-Dipstick Negative (Negative); Leukocyte Esterase-Dipstick Negative /ul (Negative); Nitrite-Dipstick Negative (Negative); Occult Blood-Urine 25 /ul (Negative); Protein-Dipstick 15 mg/dl (Negative); Specific Gravity, Urine 1.020 (1.002-1.030); Urine Bilirubin Dipstick Negative (Negative)
[2025-09-19 13:17] VITALS: BP 172/99; PULSE 66; RESP 16; O2SAT 99
[2025-09-19 13:31] LABS: Mucous, Urine 1+ /hpf (<or=2+); Red Blood Cells-Urine 0-5 SEEN /hpf (0-5); Squamous Epithelial Cells - UA 0-5 SEEN /hpf (5-10)
[2025-09-19 14:13] VITALS: BP 160/99; PULSE 67; RESP 18; TEMP 37.1; O2SAT 99
== END 2025-09-19 14:18 | disposition home or self-care (01) ==
PROVIDERS: Emergency Provider Emergency Medicine; Visit Provider Emergency Medicine
DX: R10.A1 Flank pain, right side (principal); K80.20 Calculus of gallbladder without cholecystitis without obstruction; R31.29 Other microscopic hematuria; F17.210 Nicotine dependence, cigarettes, uncomplicated
CPT/HCPCS: 74176; 80053; 81001; 83690; 85025; 96374; 96375; 99283; A4216; J2405